=== PATIENT | male | born 1950 | race Two or more races ===

== ENCOUNTER 2020-02-07 14:39 | Inpatient (IN) | payer MEDICAID ==
[~2020-02-07] VITALS: Ht 172.7 cm; Wt 70.8 kg
[2020-02-07] MEDS ORDERED: IBUPROFEN 600 MG TABLET PO ONE (15:30)
[2020-02-07] MEDS ORDERED: AZITHROMYCIN 250 MG TABLET PO ONE (15:30)
[2020-02-07] MEDS ORDERED: DEXAMETHASONE 1 MG TABLET PO ONE (15:30)
--- NOTE | 2020-02-07 16:15 | NUR ---
epic senior front end web developer paged for panel
[2020-02-07] MEDS ORDERED: CEFTRIAXONE 1GM BAG (ER ONLY) 1 GM/50 ML PIGGYBACK IV ONE (16:30)
[2020-02-07 16:56] LABS: BASOPHILS % (AUTO) 0.4 % (0.0-2.0); HEMATOCRIT 40 % (39-51); HEMOGLOBIN 13.5 g/dL (13.5-17.5); LYMPHOCYTES # (AUTO) 1.5 /CMM (0.8-4.8); LYMPHOCYTES % (AUTO) 14.8 % (20.0-44.0); MEAN CORPUSCULAR HGB CONC 34 g/dl (31.0-36.0); MEAN CORPUSCULAR VOLUME 90 fL (80-96); MONOCYTES # (AUTO) 1.2 /CMM (0.1-1.30); MONOCYTES % (AUTO) 11.8 % (2.0-12.0); NEUTROPHILS # (AUTO) 7.3 /CMM (1.8-8.9); PLATELET COUNT (AUTO) 280 /CMM (150-450); RED BLOOD CELL COUNT(AUTO) 4.45 MIL/uL (4.5-6.0); WHITE BLOOD COUNT (AUTO) 10.1 K/uL (4.3-11.0)
[2020-02-07 17:07] LABS: CALCIUM, SERUM 8.5 mg/dL (8.5-10.1); CREATININE 1.2 mg/dL (0.6-1.3); POTASSIUM 4.1 mmol/L (3.5-5.1)
[2020-02-07 17:24] LABS: ALBUMIN 2.7 g/dL (3.4-5.0); BILIRUBIN,TOTAL 1.1 mg/dL (0.2-1.0); TOTAL PROTEIN, SERUM 7.4 g/dL (6.4-8.2)
[2020-02-07] MEDS ORDERED: DEXAMETHASONE SOD PHOSPHATE 10 MG/ML VIAL ONE (18:15)
[2020-02-07] MEDS ORDERED: DEXAMETHASONE 1 MG TABLET ONE (18:15)
[2020-02-07] MEDS ORDERED: CEFTRIAXONE 1GM BAG (ER ONLY) 50 ML IV ONE (18:15)
[2020-02-07] MEDS ORDERED: AZITHROMYCIN 250 MG TABLET ONE (18:15)
[2020-02-07] MEDS ORDERED: DEXAMETHASONE 4 MG TABLET ONE (18:16)
[2020-02-07] MEDS ORDERED: IBUPROFEN 600 MG TABLET ONE (18:16)
[2020-02-07] MEDS ORDERED: DEXAMETHASONE SOD PHOSPHATE 10 MG/ML VIAL IV ONE (18:30)
[2020-02-07] MEDS: DEXAMETHASONE SOD PHOSPHATE 10 MG/ML VIAL IV SCH (18:48)
--- NOTE | 2020-02-07 18:48 | NUR ---
SOB x 3 weeks with fever. Pt AAOX4, PT SEEN & EVAL'D BY DR. CAIN. MEDICATED ORDERED, PT HONEY WELL. WILL CONT TO MONITOR.
--- NOTE | 2020-02-07 19:18 | NUR ---
TOOK OVER PT CARE. PT NOTED DIAPHORETIC, WAS PLACED IN A GOWN, ON MONITOR, AND PULSE OX. PT PROVIDED WITH WATER AND COOL BLANKET. PT RESTING AND AWARE OF PLAN OF CARE.
--- NOTE | 2020-02-07 20:46 | NUR ---
PT RESTING COMFORTABLY. PROVIDED WITH WATER.
--- NOTE | 2020-02-07 21:41 | NUR ---
PT ON MONITOR AND PULSE OX. VSS.
--- NOTE | 2020-02-07 22:46 | NUR ---
PT RESTING COMFORTABLY. VSS. PROVIDED WITH PILLOW.
--- NOTE | 2020-02-07 23:19 | NUR ---
PT ASLEEP, VSS.
--- NOTE | 2020-02-07 23:24 | NUR ---
PT SAT 95% ON 4L NC.
--- NOTE | 2020-02-08 00:53 | NUR ---
PT PROVIDED WITH WATER. VSS.
--- NOTE | 2020-02-08 02:54 | NUR ---
PT REMAINS ASLEEP. PROVIDED WITH BLANKETS.
--- NOTE | 2020-02-08 04:06 | NUR ---
PT AWAKE IN BED, VSS.
--- NOTE | 2020-02-08 05:24 | NUR ---
PT SAT 89%-93% ON 6L NC. PT ASLEEP. PT REPOSITIONED.
--- NOTE | 2020-02-08 05:46 | NUR ---
PT PLACED ON 8L SIMPLE MASK. PT SAT 91%. PT THEN PLACED PRONE POSITION ON 15L NON REBREATHER. PT NOW SAT 97%
--- NOTE | 2020-02-08 07:37 | NUR ---
REPORT GIVEN TO MEGAN MENDES FOR ASHVIN
--- NOTE | 2020-02-08 08:00 | NUR ---
PATIENT A/OX4, ON PRONE POSITION. RESTING AT THIS TIME.
[2020-02-08] MEDS: DEXAMETHASONE SOD PHOSPHATE 10 MG/ML VIAL IV SCH (09:30)
--- NOTE | 2020-02-08 10:00 | NUR ---
PROVIDED FOOD TRAY, NO DISTRESS NOTED.
--- NOTE | 2020-02-08 12:00 | NUR ---
PATIENT ON SUPINE POSITION WITH SPO2 OF 94%. NO DISTRESS NOTED.
[2020-02-08] MEDS ORDERED: DEXAMETHASONE SOD PHOSPHATE 6 MG in IV D5W 50 ML IV ONE (13:00)
--- NOTE | 2020-02-08 13:00 | NUR ---
GAVE PATIENT FOOD AND WATER.
--- NOTE | 2020-02-08 14:30 | NUR ---
PATIENT PLACED ON PRONE POSITION. NO DISTRESS NOTED. STILL ON 15LPM VIA NRB.
--- NOTE | 2020-02-08 19:14 | NUR ---
PATIENT EATING DINNER, NO DISTRESS NOTED. ABLE TO STAND BY THE BED.
--- NOTE | 2020-02-08 19:21 | NUR ---
Patient speaks French only. Spoke with daughter in law Emma [phone]. Patient lives with his son and his family on the second floor apartment.Per family, patient was ambulatory and independent with adl's three weeks ago. For the past few weeks, patient became sick and started to have a progressive declined with mobility/difficulty walking. Has no DME or homehealth reported. Has no pcp due to being uninsured.Advised family to follow up with the local [facility] after discharge. Current dc plan is to return home. Addendum: 02/08/20 at 1922 by ALEXANDER ESCAMILLA RN Amended: Links added.
--- NOTE | 2020-02-09 03:03 | NUR ---
PT NOTICED SATTING AT 82% VIA NRB @15LPM. PT PLACED ON PRONE POSITION PT SATTING 90% ON 15LPM VIA NRB. AWARE. PT CONNECTED TO THE TOP LIFT NAILER AND POX.
[2020-02-09 04:33] LABS: BASOPHILS % (AUTO) 0.1 % (0.0-2.0); HEMATOCRIT 43 % (39-51); HEMOGLOBIN 14.3 g/dL (13.5-17.5); LYMPHOCYTES # (AUTO) 1.3 /CMM (0.8-4.8); LYMPHOCYTES % (AUTO) 9.4 % (20.0-44.0); MEAN CORPUSCULAR HGB CONC 33 g/dl (31.0-36.0); MEAN CORPUSCULAR VOLUME 91 fL (80-96); MONOCYTES # (AUTO) 0.9 /CMM (0.1-1.30); MONOCYTES % (AUTO) 6.5 % (2.0-12.0); PLATELET COUNT (AUTO) 316 /CMM (150-450); RED BLOOD CELL COUNT(AUTO) 4.68 MIL/uL (4.5-6.0); WHITE BLOOD COUNT (AUTO) 14.3 K/uL (4.3-11.0)
[2020-02-09 04:45] LABS: CALCIUM, SERUM 9.2 mg/dL (8.5-10.1); CREATININE 1.1 mg/dL (0.6-1.3); MAGNESIUM 2.6 mg/dL (1.8-2.4); POTASSIUM 4.4 mmol/L (3.5-5.1)
[2020-02-09] MEDS: DEXAMETHASONE SOD PHOSPHATE 10 MG/ML VIAL IV SCH (08:35)
--- NOTE | 2020-02-09 09:54 | NUR ---
PATIENT ON HIGH FLOW AND TOLERATING WELL, RESTING AT THIS TIME, ATE BREAKFAST.
--- NOTE | 2020-02-09 13:00 | NUR ---
PATIENT RESTING, NO DISTRESS NOTED.
--- NOTE | 2020-02-09 17:00 | NUR ---
PATIENT A/OX4, TOLERATING HIGH FLOW, NO DISTRESS NOTED. VITALS STABLE. GIVEN FOOD TRAY.
--- NOTE | 2020-02-09 20:16 | NUR ---
PT RESTING COMFORTABLY. VSS.
--- NOTE | 2020-02-09 21:23 | NUR ---
PT REQUESTED TO DRINK WATER. PT PROVIDED WITH WATER. APPEARS COMFORTABLE IN BED. ON HIGH FLOW, SAT 95%. PT PROVIDED WITH WARM BLANKET AND PILLOW. REPOSITIONED Q2HRS. RR EVEN AND UNLABORED. CALL LIGHT AT BEDSIDE. WILL CONTINUE TO MONITOR.
--- NOTE | 2020-02-09 23:50 | NUR ---
PT REPOSITIONED Q2 HRS. VSS. PT ASLEEP, CALL LIGHT AT BEDSIDE.
--- NOTE | 2020-02-10 01:08 | NUR ---
PT REPOSITIONED, PROVIDED WITH WATER. VSS.
--- NOTE | 2020-02-10 03:22 | NUR ---
PT NOTED ASLEEP, VSS. NO ACUTE DISTRESS NOTED.
--- NOTE | 2020-02-10 04:48 | NUR ---
FINAL INSPECTOR AT BEDSIDE FOR [facility].
[2020-02-10 06:04] LABS: BASOPHILS % (AUTO) 0.1 % (0.0-2.0); HEMATOCRIT 42 % (39-51); HEMOGLOBIN 13.9 g/dL (13.5-17.5); LYMPHOCYTES # (AUTO) 1.7 /CMM (0.8-4.8); LYMPHOCYTES % (AUTO) 12.9 % (20.0-44.0); MEAN CORPUSCULAR HGB CONC 33 g/dl (31.0-36.0); MEAN CORPUSCULAR VOLUME 91 fL (80-96); MONOCYTES % (AUTO) 7.5 % (2.0-12.0); NEUTROPHILS # (AUTO) 10.7 /CMM (1.8-8.9); NEUTROPHILS % (AUTO) 79.5 % (43.0-81.0); PLATELET COUNT (AUTO) 298 /CMM (150-450); RED BLOOD CELL COUNT(AUTO) 4.67 MIL/uL (4.5-6.0); WHITE BLOOD COUNT (AUTO) 13.4 K/uL (4.3-11.0)
[2020-02-10 06:17] LABS: CALCIUM, SERUM 8.9 mg/dL (8.5-10.1); CREATININE 0.8 mg/dL (0.6-1.3); MAGNESIUM 2.5 mg/dL (1.8-2.4); POTASSIUM 4.2 mmol/L (3.5-5.1)
[2020-02-10 06:34] LABS: PHOSPHORUS 4.7 mg/dL (2.5-4.9)
--- NOTE | 2020-02-10 06:44 | NUR ---
PT REPOSITIOEND, VSS.
--- NOTE | 2020-02-10 07:18 | NUR ---
REPORT GIVEN TO MEGAN MENDES FOR ASHVIN
[2020-02-10] MEDS: DEXAMETHASONE SOD PHOSPHATE 10 MG/ML VIAL IV SCH (08:19)
--- NOTE | 2020-02-10 09:04 | NUR ---
PATIENT A/OX4, ASSISTED TO SITTING POSITION. STILL ON HIGH FLOW AND TOLERATING WELL. PROVIDED BREAKFAST.
--- NOTE | 2020-02-10 19:30 | NUR ---
REC'D PT IN BED 1, AAOX4, ON HI-FLOW O2, TOLERATED, RR EVEN AND UNLABORED, SAT 96-98%, REC'D PT EATING DINNER, DENIES ANY PAIN/DISCOMFORT. PT VSS, NOT IN ANY ACUTE DISTRESS, CALL LIGHT WITHIN REACH, WILL CONT TO MONITOR.
[2020-02-11 05:10] LABS: BASOPHILS % (AUTO) 0.1 % (0.0-2.0); EOSINOPHILS % (AUTO) 0.3 % (0.0-6.0); HEMATOCRIT 40 % (39-51); HEMOGLOBIN 13.6 g/dL (13.5-17.5); LYMPHOCYTES % (AUTO) 19.6 % (20.0-44.0); MEAN CORPUSCULAR HGB CONC 34 g/dl (31.0-36.0); MEAN CORPUSCULAR VOLUME 90 fL (80-96); MONOCYTES # (AUTO) 0.8 /CMM (0.1-1.30); MONOCYTES % (AUTO) 8.5 % (2.0-12.0); NEUTROPHILS # (AUTO) 7.2 /CMM (1.8-8.9); NEUTROPHILS % (AUTO) 71.5 % (43.0-81.0); PLATELET COUNT (AUTO) 306 /CMM (150-450); RED BLOOD CELL COUNT(AUTO) 4.46 MIL/uL (4.5-6.0)
[2020-02-11 05:28] LABS: CALCIUM, SERUM 8.4 mg/dL (8.5-10.1); CREATININE 0.9 mg/dL (0.6-1.3); MAGNESIUM 2.2 mg/dL (1.8-2.4); PHOSPHORUS 3.8 mg/dL (2.5-4.9); POTASSIUM 4.2 mmol/L (3.5-5.1)
--- NOTE | 2020-02-11 06:00 | NUR ---
NO ACUTE EVENTS, CONT ON HIGHFLOW O2, TOLERATED, -SOB. VSS
--- NOTE | 2020-02-11 08:30 | NUR ---
provided with breakfast ate 80%. all due meds administered. no ase noted
[2020-02-11] MEDS: DEXAMETHASONE SOD PHOSPHATE 10 MG/ML VIAL IV SCH (09:30)
--- NOTE | 2020-02-11 12:30 | NUR ---
provioded with lunch ate 70%
--- NOTE | 2020-02-11 15:00 | NUR ---
pt was assisted to commode x1 bm today by bedside commode
--- NOTE | 2020-02-11 17:30 | NUR ---
provided with dinner ate 70%
--- NOTE | 2020-02-11 19:32 | NUR ---
report given to zahida ramirez for kwabena
[2020-02-12 05:45] LABS: EOSINOPHILS % (AUTO) 0.1 % (0.0-6.0); HEMATOCRIT 41 % (39-51); HEMOGLOBIN 13.8 g/dL (13.5-17.5); LYMPHOCYTES # (AUTO) 1.9 /CMM (0.8-4.8); LYMPHOCYTES % (AUTO) 16.2 % (20.0-44.0); MEAN CORPUSCULAR HGB CONC 34 g/dl (31.0-36.0); MEAN CORPUSCULAR VOLUME 90 fL (80-96); MONOCYTES # (AUTO) 0.8 /CMM (0.1-1.30); MONOCYTES % (AUTO) 6.9 % (2.0-12.0); NEUTROPHILS % (AUTO) 76.8 % (43.0-81.0); PLATELET COUNT (AUTO) 331 /CMM (150-450); RED BLOOD CELL COUNT(AUTO) 4.58 MIL/uL (4.5-6.0); WHITE BLOOD COUNT (AUTO) 11.7 K/uL (4.3-11.0)
[2020-02-12 05:56] LABS: CALCIUM, SERUM 8.6 mg/dL (8.5-10.1); CREATININE 0.9 mg/dL (0.6-1.3); MAGNESIUM 2.3 mg/dL (1.8-2.4); PHOSPHORUS 3.6 mg/dL (2.5-4.9); POTASSIUM 4.7 mmol/L (3.5-5.1)
--- NOTE | 2020-02-12 07:00 | NUR ---
RECEIVED PT IN BED AT THIS TIME.AOX4, PT ABLE TO VERBALIZE NEEDS. WALLISIAN SPEAKING. PT ON HIGH FLOW OXYGEN @ 60 WITH FIO2 OF 70. IV ACCESS NOTED IN LAC G#20, INTACT, PATENT AND FLUSHING WELL. SAFETY PRECAUTIONS IN PLACE AND MAINTAINED AT ALL TIMES, BED IN LOWEST LOCKED POSITION, HOB ELEVATED, CALL LIGHT WITHIN REACH, WILL CONTINUE TO MONITOR
--- NOTE | 2020-02-12 07:41 | NUR ---
REPORT GIVEN TO ROSALINA MENDES FOR ASHVIN.
[2020-02-12] MEDS: DEXAMETHASONE SOD PHOSPHATE 10 MG/ML VIAL IV SCH (08:23)
--- NOTE | 2020-02-12 19:03 | NUR ---
RN CLOSING NOTES PT AWAKE IN BED AT THIS TIME.PT REMAINED STABLE THROUGHOUT SHIFT. ALL CARE, NEED, MEDICATIONS AND TREATMENT ADMINISTERED ANTICIPATED PER ORDER. PT KEPT CLEAN AND DRY. SAFETY PRECAUTION IN PLACE AND MAINTAINED AT ALL TIMES. BED IN LOWEST LOCKED POSITION, HOB ELEVATED, SIDE RAILS UP X 2, CALL LIGHT AND TABLE WITHIN REACH. WILL ENDORSE TO CHAPLAIN RESIDENT NURSE FOR ASHVIN
--- NOTE | 2020-02-12 19:20 | NUR ---
REC'D REPORT FROM CINTHYA ROMANO. PT RESTING COMFORTABLY IN BED. VITAL SIGNS STABLE. PT STILL ON HIGH FLOW, TOLERATING WELL. O2 SAT 99% ROOM AIR. STILL ON CONTINUOUS SLIP INJECTOR AND APPLICATOR AND PULSE OX, WILL CONTINUE TO MONITOR
[2020-02-12 19:52] LABS: C-REACTIVE PROTEIN 2.3 mg/dL (0.0-0.9)
[2020-02-12] MEDS ORDERED: REMDESIVIR (CHARGED) 200 MG, *LOADING DOSE 1 EA in IV NS 0.9% 210 ML IV ONE (20:00)
[2020-02-12] MEDS ORDERED: ENOXAPARIN SODIUM 40 MG/0.4 ML DISP.SYRIN SQ ONE (20:33)
[2020-02-12] MEDS: ENOXAPARIN SODIUM 40 MG/0.4 ML DISP.SYRIN SQ SCH (20:38)
[2020-02-13 03:51] LABS: BASOPHILS % (AUTO) 0.1 % (0.0-2.0); HEMATOCRIT 42 % (39-51); HEMOGLOBIN 13.8 g/dL (13.5-17.5); LYMPHOCYTES # (AUTO) 2.1 /CMM (0.8-4.8); LYMPHOCYTES % (AUTO) 17.4 % (20.0-44.0); MEAN CORPUSCULAR HGB CONC 33 g/dl (31.0-36.0); MEAN CORPUSCULAR VOLUME 92 fL (80-96); MONOCYTES # (AUTO) 0.8 /CMM (0.1-1.30); MONOCYTES % (AUTO) 6.8 % (2.0-12.0); NEUTROPHILS # (AUTO) 9.1 /CMM (1.8-8.9); NEUTROPHILS % (AUTO) 75.7 % (43.0-81.0); PLATELET COUNT (AUTO) 339 /CMM (150-450); RED BLOOD CELL COUNT(AUTO) 4.56 MIL/uL (4.5-6.0); WHITE BLOOD COUNT (AUTO) 12.1 K/uL (4.3-11.0)
[2020-02-13 04:19] LABS: ALBUMIN 2.5 g/dL (3.4-5.0); BILIRUBIN,DIRECT 0.1 mg/dL (0.0-0.2); BILIRUBIN,TOTAL 0.4 mg/dL (0.2-1.0); CALCIUM, SERUM 9.1 mg/dL (8.5-10.1); MAGNESIUM 2.2 mg/dL (1.8-2.4); PHOSPHORUS 3.9 mg/dL (2.5-4.9); POTASSIUM 4.8 mmol/L (3.5-5.1); TOTAL PROTEIN, SERUM 6.9 g/dL (6.4-8.2)
--- NOTE | 2020-02-13 05:36 | NUR ---
PT CLEANED, TURNED, AND BED SHEETS CHANGED. PT RESTING COMFORTABLY IN BED. VITAL SIGNS STABLE. CALL LIGHT WITHIN REACH. WILL CONTINUE TO MONITOR
[2020-02-13] MEDS: ENOXAPARIN SODIUM 40 MG/0.4 ML DISP.SYRIN SQ SCH ×2 (06:05→17:35)
[2020-02-13] MEDS ORDERED: ENOXAPARIN SODIUM 60 MG/0.6 ML DISP.SYRIN SQ ONE (06:05)
--- NOTE | 2020-02-13 07:21 | NUR ---
REPORT GIVEN TO CINTHYA CHATTERJEE FOR ASHVIN
[2020-02-13] MEDS: DEXAMETHASONE SOD PHOSPHATE 10 MG/ML VIAL IV SCH (09:25)
[2020-02-13] MEDS ORDERED: REMDESIVIR (CHARGED) 100 MG in IV NS 0.9% 230 ML IV SCH (20:00)
--- NOTE | 2020-02-13 23:40 | NUR ---
PATIENT IS SLEEPING. EASILY AROUSABLE BY VERBAL STIMULI. BREATHING EVENLY AND UNLABORED ON ROOM AIR. CONNECTED TO THE MONITOR. SIDE RAILS UP FOR SAFETY. BED AT THE LOWEST POSITION. CALL LIGHT IS WITHIN REACH. VSS. WILL CONTINUE TO MONITOR PATIENT.
--- NOTE | 2020-02-14 02:58 | NUR ---
PATIENT PLACED ON 25L AND 40% FIO2
--- NOTE | 2020-02-14 04:36 | NUR ---
EMPTIED OUT URINAL, PATIENT CURRENLTY HAS NO COMPLAINT. PATIENT IS BREATHING EVENLY AND UNLABORED ON ROOM AIR. AAOX4. WILL CONTINUE TO MONITOR.
[2020-02-14 05:06] LABS: BASOPHILS % (AUTO) 0.1 % (0.0-2.0); HEMATOCRIT 43 % (39-51); LYMPHOCYTES % (AUTO) 18.1 % (20.0-44.0); MEAN CORPUSCULAR HGB CONC 33 g/dl (31.0-36.0); MEAN CORPUSCULAR VOLUME 91 fL (80-96); MONOCYTES # (AUTO) 0.7 /CMM (0.1-1.30); MONOCYTES % (AUTO) 6.5 % (2.0-12.0); NEUTROPHILS # (AUTO) 8.4 /CMM (1.8-8.9); NEUTROPHILS % (AUTO) 75.3 % (43.0-81.0); PLATELET COUNT (AUTO) 343 /CMM (150-450); RED BLOOD CELL COUNT(AUTO) 4.67 MIL/uL (4.5-6.0); WHITE BLOOD COUNT (AUTO) 11.2 K/uL (4.3-11.0)
[2020-02-14 05:29] LABS: ALBUMIN 2.6 g/dL (3.4-5.0); BILIRUBIN,DIRECT 0.2 mg/dL (0.0-0.2); BILIRUBIN,TOTAL 0.5 mg/dL (0.2-1.0); MAGNESIUM 2.3 mg/dL (1.8-2.4); PHOSPHORUS 3.5 mg/dL (2.5-4.9); POTASSIUM 4.8 mmol/L (3.5-5.1); TOTAL PROTEIN, SERUM 6.9 g/dL (6.4-8.2)
--- NOTE | 2020-02-14 05:55 | NUR ---
PATIENT IS SLEEPING. EASILY AROUSABLE BY VERBAL STIMULI. BREATHING EVENLY AND UNLABORED ON HIGH FLOW NASAL CANNULA. CONNECTED TO THE MONITOR. SIDE RAILS UP FOR SAFETY. BED AT THE LOWEST POSITION. CALL LIGHT IS WITHIN REACH. VSS. WILL CONTINUE TO MONITOR PATIENT.
[2020-02-14] MEDS ORDERED: ENOXAPARIN SODIUM 40 MG/0.4 ML DISP.SYRIN SQ ONE (06:17)
[2020-02-14] MEDS: ENOXAPARIN SODIUM 40 MG/0.4 ML DISP.SYRIN SQ SCH ×2 (06:24→17:10)
--- NOTE | 2020-02-14 08:02 | NUR ---
REPORT GIVEN TO NOREEN MENDES FOR ASHVIN.
[2020-02-14] MEDS: DEXAMETHASONE SOD PHOSPHATE 10 MG/ML VIAL IV SCH (08:46)
--- NOTE | 2020-02-14 09:00 | NUR ---
RT TITRATED THE PATIENT'S O2 FROM HIGH FLOW TO NASAL CANNULA 5LPM WITH SPO2 OF 95%. PATIENT'S BREATHINGE THOR AND UNLABORED, NO SOB NOTED. TOLERATED BREAKFAST.
--- NOTE | 2020-02-14 12:00 | NUR ---
PATIENT PROVIDED WITH SKIN CARE. NO DISTRESS NOTED. TOLERATING 5LPM VIA NC. EATING LUNCH AT THIS TIME.
--- NOTE | 2020-02-15 03:38 | NUR ---
PATIENT IS SLEEPING. TOLERATING 5L 02 NASAL CANNULA AT 98%. PATIENT IS BREATHING EVENLY AND UNLABORED. CONNECTED TO THE CLINICAL INFORMATICS MANAGER. PATIENT'S BED IS AT THE LOWEST POSITION. CALL LIGHT IS WITHIN REACH. SIDE RAILS ARE UP FOR SAFETY. WILL CONTINUE TO MONITOR PATIENT CLOSELY.
[2020-02-15 04:09] LABS: BASOPHILS # (AUTO) 0.1 /CMM (0.0-0.2); BASOPHILS % (AUTO) 0.6 % (0.0-2.0); EOSINOPHILS % (AUTO) 0.1 % (0.0-6.0); HEMATOCRIT 44 % (39-51); HEMOGLOBIN 14.4 g/dL (13.5-17.5); LYMPHOCYTES # (AUTO) 2.1 /CMM (0.8-4.8); LYMPHOCYTES % (AUTO) 19.1 % (20.0-44.0); MEAN CORPUSCULAR HGB CONC 33 g/dl (31.0-36.0); MEAN CORPUSCULAR VOLUME 92 fL (80-96); MONOCYTES # (AUTO) 0.9 /CMM (0.1-1.30); MONOCYTES % (AUTO) 8.4 % (2.0-12.0); NEUTROPHILS # (AUTO) 7.8 /CMM (1.8-8.9); NEUTROPHILS % (AUTO) 71.8 % (43.0-81.0); PLATELET COUNT (AUTO) 351 /CMM (150-450); RED BLOOD CELL COUNT(AUTO) 4.82 MIL/uL (4.5-6.0); WHITE BLOOD COUNT (AUTO) 10.9 K/uL (4.3-11.0)
[2020-02-15 04:27] LABS: ALBUMIN 2.5 g/dL (3.4-5.0); BILIRUBIN,DIRECT 0.1 mg/dL (0.0-0.2); BILIRUBIN,TOTAL 0.6 mg/dL (0.2-1.0); CALCIUM, SERUM 8.7 mg/dL (8.5-10.1); MAGNESIUM 2.4 mg/dL (1.8-2.4); PHOSPHORUS 3.5 mg/dL (2.5-4.9); POTASSIUM 4.9 mmol/L (3.5-5.1); TOTAL PROTEIN, SERUM 6.6 g/dL (6.4-8.2)
[2020-02-15] MEDS: ENOXAPARIN SODIUM 40 MG/0.4 ML DISP.SYRIN SQ SCH ×2 (06:19→18:39)
[2020-02-15] MEDS: DEXAMETHASONE SOD PHOSPHATE 10 MG/ML VIAL IV SCH (09:39)
--- NOTE | 2020-02-16 03:00 | NUR ---
pt o2 titrated to 4lpm nc, tolerated, 99-100% sat
[2020-02-16 06:26] LABS: ALBUMIN 2.6 g/dL (3.4-5.0); BILIRUBIN,DIRECT 0.2 mg/dL (0.0-0.2); BILIRUBIN,TOTAL 0.5 mg/dL (0.2-1.0); CALCIUM, SERUM 8.5 mg/dL (8.5-10.1); CREATININE 0.9 mg/dL (0.6-1.3); POTASSIUM 4.8 mmol/L (3.5-5.1); TOTAL PROTEIN, SERUM 6.5 g/dL (6.4-8.2)
[2020-02-16] MEDS: ENOXAPARIN SODIUM 40 MG/0.4 ML DISP.SYRIN SQ SCH ×2 (07:16→20:04)
[2020-02-16 08:51] LABS: ALBUMIN 2.8 g/dL (3.4-5.0); BILIRUBIN,DIRECT 0.2 mg/dL (0.0-0.2); BILIRUBIN,TOTAL 0.6 mg/dL (0.2-1.0)
[2020-02-16] MEDS: DEXAMETHASONE SOD PHOSPHATE 10 MG/ML VIAL IV SCH (09:13)
--- NOTE | 2020-02-16 16:22 | NUR ---
narda caser up called for pt updates
--- NOTE | 2020-02-16 20:15 | NUR ---
PT AAOX4, VSS. RESPIRATIONS EVEN AND UNLABORED ON RA W/ NAD NOTED. PT HAS NO COMPLAINTS AT THIS TIME. PT STATES "I FEEL BETTER THAN THE FIRST TIME I CAME IN". PT DENIES PAIN AND SOB. WILL CONTINUE TO MONITOR ACCORDINGLY
[2020-02-17] MEDS: ENOXAPARIN SODIUM 40 MG/0.4 ML DISP.SYRIN SQ SCH ×2 (06:11→18:30)
[2020-02-17 06:29] LABS: BASOPHILS # (AUTO) 0.1 /CMM (0.0-0.2); BASOPHILS % (AUTO) 0.4 % (0.0-2.0); EOSINOPHILS % (AUTO) 0.1 % (0.0-6.0); HEMATOCRIT 43 % (39-51); HEMOGLOBIN 14.2 g/dL (13.5-17.5); LYMPHOCYTES # (AUTO) 2.3 /CMM (0.8-4.8); LYMPHOCYTES % (AUTO) 19.3 % (20.0-44.0); MEAN CORPUSCULAR HGB CONC 33 g/dl (31.0-36.0); MEAN CORPUSCULAR VOLUME 91 fL (80-96); MONOCYTES # (AUTO) 0.8 /CMM (0.1-1.30); MONOCYTES % (AUTO) 7.1 % (2.0-12.0); NEUTROPHILS # (AUTO) 8.6 /CMM (1.8-8.9); NEUTROPHILS % (AUTO) 73.1 % (43.0-81.0); PLATELET COUNT (AUTO) 354 /CMM (150-450); RED BLOOD CELL COUNT(AUTO) 4.71 MIL/uL (4.5-6.0); WHITE BLOOD COUNT (AUTO) 11.7 K/uL (4.3-11.0)
[2020-02-17 07:11] LABS: ALBUMIN 2.6 g/dL (3.4-5.0); BILIRUBIN,DIRECT 0.2 mg/dL (0.0-0.2); BILIRUBIN,TOTAL 0.5 mg/dL (0.2-1.0); CALCIUM, SERUM 8.5 mg/dL (8.5-10.1); CREATININE 0.9 mg/dL (0.6-1.3); MAGNESIUM 2.2 mg/dL (1.8-2.4); PHOSPHORUS 3.1 mg/dL (2.5-4.9); POTASSIUM 4.5 mmol/L (3.5-5.1); TOTAL PROTEIN, SERUM 6.5 g/dL (6.4-8.2)
[2020-02-17] MEDS ORDERED: ENOXAPARIN SODIUM 40 MG/0.4 ML DISP.SYRIN SQ ONE (18:46)
--- NOTE | 2020-02-17 19:30 | NUR ---
REC'D PT AWAKE/ALERT, AAOX4, DENIES ANY SOB, PT ON 2L NC, TOLERATED, PT AMBULATORY, PT CONTINENT B/B, CALL LIGHT WITHIN REACH, VSS, NAD. WCTM
--- NOTE | 2020-02-18 06:00 | NUR ---
NO ACUTE EVENTS, NO CHANGES, DENIES SOB/CP. VSS. WCTM
[2020-02-18] MEDS: ENOXAPARIN SODIUM 40 MG/0.4 ML DISP.SYRIN SQ SCH ×2 (07:09→18:30)
[2020-02-18 07:53] LABS: BASOPHILS % (AUTO) 0.3 % (0.0-2.0); EOSINOPHILS % (AUTO) 0.6 % (0.0-6.0); HEMATOCRIT 41 % (39-51); HEMOGLOBIN 13.6 g/dL (13.5-17.5); LYMPHOCYTES # (AUTO) 3.1 /CMM (0.8-4.8); LYMPHOCYTES % (AUTO) 33.2 % (20.0-44.0); MEAN CORPUSCULAR HGB CONC 33 g/dl (31.0-36.0); MEAN CORPUSCULAR VOLUME 91 fL (80-96); MONOCYTES # (AUTO) 0.8 /CMM (0.1-1.30); NEUTROPHILS # (AUTO) 5.3 /CMM (1.8-8.9); NEUTROPHILS % (AUTO) 56.9 % (43.0-81.0); PLATELET COUNT (AUTO) 329 /CMM (150-450); RED BLOOD CELL COUNT(AUTO) 4.52 MIL/uL (4.5-6.0); WHITE BLOOD COUNT (AUTO) 9.4 K/uL (4.3-11.0)
[2020-02-18 08:21] LABS: CALCIUM, SERUM 8.5 mg/dL (8.5-10.1); CREATININE 0.9 mg/dL (0.6-1.3); MAGNESIUM 2.2 mg/dL (1.8-2.4); PHOSPHORUS 3.6 mg/dL (2.5-4.9)
--- NOTE | 2020-02-18 19:20 | NUR ---
ASSUMED CARE. RECEIVED REPORT FROM AM SHIFT CINTHYA CHATTERJEE. PT RESTING QUIETLY, NO ACUTE DISTRESS NOTED, RESP EVEN AND UNLABORED, LUNG SOUNDS DEMINISHED THROUGHOUT THE BASES. PT ON CARDIAC MONITORING, CONTINUOUS POX. O2@2L/NC NOTED. NO PAIN OR DISCOMFORT NOTED. PT AAOX4. SKIN WARM, NONDIAPHORETIC. CALL LIGHT WITHIN REACH. WILL CONTINUE TO MONITOR PT CLOSELY.
--- NOTE | 2020-02-19 01:54 | NUR ---
PT ASLEEP, NO ACUTE DISTRESS NOTED, RESP EVEN AND UNLABORED. CALL LIGHT WITHIN REACH. WILL CONTINUE TO MONITOR PT CLOSELY.
[2020-02-19 04:24] LABS: BASOPHILS % (AUTO) 0.3 % (0.0-2.0); EOSINOPHILS % (AUTO) 1.3 % (0.0-6.0); HEMATOCRIT 42 % (39-51); HEMOGLOBIN 13.8 g/dL (13.5-17.5); LYMPHOCYTES # (AUTO) 2.8 /CMM (0.8-4.8); LYMPHOCYTES % (AUTO) 29.2 % (20.0-44.0); MEAN CORPUSCULAR HGB CONC 33 g/dl (31.0-36.0); MEAN CORPUSCULAR VOLUME 92 fL (80-96); MONOCYTES # (AUTO) 0.9 /CMM (0.1-1.30); MONOCYTES % (AUTO) 9.6 % (2.0-12.0); NEUTROPHILS # (AUTO) 5.7 /CMM (1.8-8.9); NEUTROPHILS % (AUTO) 59.6 % (43.0-81.0); PLATELET COUNT (AUTO) 329 /CMM (150-450); WHITE BLOOD COUNT (AUTO) 9.6 K/uL (4.3-11.0)
[2020-02-19 04:37] LABS: CALCIUM, SERUM 8.6 mg/dL (8.5-10.1); CREATININE 1.1 mg/dL (0.6-1.3); MAGNESIUM 2.3 mg/dL (1.8-2.4); PHOSPHORUS 4.4 mg/dL (2.5-4.9); POTASSIUM 4.7 mmol/L (3.5-5.1)
--- NOTE | 2020-02-19 05:00 | NUR ---
PT AMBULATORY TO THE BATHROOM WITH STEADY GAIT NOTED. NO ACUTE DISTRESS NOTED. PT REMAINS PAIN FREE AT THIS TIME. WILL CONTINUE TO MONITOR PT CLOSELY.
[2020-02-19] MEDS: ENOXAPARIN SODIUM 40 MG/0.4 ML DISP.SYRIN SQ SCH ×2 (06:11→18:27)
[2020-02-19] MEDS ORDERED: ENOXAPARIN SODIUM 40 MG/0.4 ML DISP.SYRIN SQ ONE (18:12)
--- NOTE | 2020-02-19 19:15 | NUR ---
Note undone in EDM - 02/19/20 at 2304 by TRACIE ASSUMED CARE FROM CINTHYA CHATTERJEE. PT IS A&OX4. PT ABLE TO SPEAK IN FULL SENTENCES AND BREATHING EVENLY AND UNLABORED. PT HAS MILD COUGH AND O295% 8L SIMPLE MASK.SKIN IS INTACT, WARM AND DRY. PT HOOKED TO MONITOR AND POX. CALL LIGHT WITHIN REACH. WILL CONTINUE TO MONITOR.
--- NOTE | 2020-02-19 19:15 | NUR ---
ASSUMED CARE FROM CINTHYA CHATTERJEE. PT IS RESTING COMFORTABLY IN BED, PLAYING WITH HIS CELL PHONE. PT STATES THAT "HE IS FEELING BETTER". PT A&OX4 BREATHING EVENLY AND UNLABORED. SKIN IS WARM, DRY, AND INTACT. PT IS HOOKED TO THE MONITOR AND POX. CALL LIGHT WITHIN REACH. WILL CONTINUE TO MONITOR.
--- NOTE | 2020-02-19 22:15 | NUR ---
PT RESTING COMFORTABLY AND CONNECTED TO THE MONITOR. PT BREATHING EVENLY AND UNLABORED. PT CONNECTED TO THE MONITOR, CALL LIGHT WITHIN REACH. WILL CONTINUE TO MONITOR.
[2020-02-20 05:12] LABS: BASOPHILS % (AUTO) 0.4 % (0.0-2.0); EOSINOPHILS % (AUTO) 1.9 % (0.0-6.0); HEMATOCRIT 39 % (39-51); HEMOGLOBIN 13.3 g/dL (13.5-17.5); LYMPHOCYTES # (AUTO) 2.3 /CMM (0.8-4.8); LYMPHOCYTES % (AUTO) 25.4 % (20.0-44.0); MEAN CORPUSCULAR HGB CONC 34 g/dl (31.0-36.0); MEAN CORPUSCULAR VOLUME 91 fL (80-96); MONOCYTES # (AUTO) 0.9 /CMM (0.1-1.30); MONOCYTES % (AUTO) 10.1 % (2.0-12.0); NEUTROPHILS # (AUTO) 5.7 /CMM (1.8-8.9); NEUTROPHILS % (AUTO) 62.2 % (43.0-81.0); PLATELET COUNT (AUTO) 286 /CMM (150-450); RED BLOOD CELL COUNT(AUTO) 4.31 MIL/uL (4.5-6.0); WHITE BLOOD COUNT (AUTO) 9.1 K/uL (4.3-11.0)
[2020-02-20 05:27] LABS: CALCIUM, SERUM 8.3 mg/dL (8.5-10.1); CREATININE 0.9 mg/dL (0.6-1.3); MAGNESIUM 2.2 mg/dL (1.8-2.4); PHOSPHORUS 3.4 mg/dL (2.5-4.9); POTASSIUM 4.1 mmol/L (3.5-5.1)
--- NOTE | 2020-02-20 06:02 | NUR ---
REPORT CALLED TO PHARMACY ORDER ENTRY TECHNICIANCINTHYA FREEMAN.
[2020-02-20] MEDS ORDERED: ENOXAPARIN SODIUM 40 MG/0.4 ML DISP.SYRIN SQ ONE (06:04)
[2020-02-20] MEDS: ENOXAPARIN SODIUM 40 MG/0.4 ML DISP.SYRIN SQ SCH ×2 (06:05→17:37)
--- NOTE | 2020-02-20 07:30 | NUR ---
REPORT PASSED ON TO PAULETTE FOR CONTINUITY OF CARE. QUESTIONS CONCERNS ADDRESSED. PT IN ROOM IN NO APPARENT DISTRESS. ON 2LNC. CALL LIGHT IN REACH BED DOWN AND LOCKED.
[2020-02-20 08:00] VITALS: BP 125/69
--- NOTE | 2020-02-20 10:00 | NUR ---
TELE/RN NOTES DR ARGUETA ORDER PATIENT IS OKAY TO DISCHARGE IF THERE IS OXYGEN. NOTED AND CARRIED OUT.
--- NOTE | 2020-02-20 10:56 | NUR ---
TELE/RN NOTES PATIENT REFUSED FOR SKIN ASSESSMENT , EX[PLAINED THE RISK AND BENEFITS. WILL CONTINUE TO MONITOR.
--- NOTE | 2020-02-20 11:51 | NUR ---
TELE/RN NOTES PATIENT SATURATION 87-88 ON ROOM AIR AT REST.
--- NOTE | 2020-02-20 11:51 | NUR ---
TELE/RN NOTES PATIENT SATURATION 87-89 ON ROOM AIR AT REST. Addendum: 02/20/20 at 1506 by PAULETTE LINO RN ERROR
[2020-02-20 12:00] VITALS: BP 139/59
[2020-02-20 16:00] VITALS: BP 131/71
--- NOTE | 2020-02-20 19:03 | NUR ---
athlete manager opening notes Received Pt from morning nurse. Pt is alert and orientedX4. Pt speaks Cymro and able to make needs known. Pt is laying in bed comfortably talking with his daughter on the phone. Respiration is normal in room air. No SOB. No S/S of distress noted. Tele monitor showed SR hr at 73 bpm. IV site at LAC# 20 is clean, intact, flushes well and SL. Safety precautions is maintained. Bed at low position, brakes locked, side rails upX2 and call light is within reach. Will continue to monitor.
--- NOTE | 2020-02-20 19:28 | NUR ---
TELE/RN CLOSING NOTES PATIENT IS ON BED. ALERT AND ORIENTED X3. PATIENT IN NO APPARENT RESPIRATORY DISTRESS NOTED. NO COMPLAINED OF PAIN AT THIS TIME. PATIENT IS ON ROOM AIR SATURATIONS 97%. TELE MONITOR READING SINUS RHYTHM - SINUS TACHY 75- 105BPM. IV ACCESS AT LEFT AC 20G PATENT AND INTACT. SEEN AND EXAMINED BY MD WITH ORDERS MADE AND CARRIED OUT. ALL DUE MEDICATIONS WAS GIVEN. SAFETY PRECAUTIONS WAS IN PLACED. BED IN LOWEST POSITION AND LOCKED. SIDERAILS UP X2. CALL LIGHT WITHIN REACH. WILL ENDORSED TO VP RESPIRATORY FOR ASHVIN.
[2020-02-20 20:00] VITALS: BP 131/73
[2020-02-21] VITALS: BP 138/72
[2020-02-21 00:01] VITALS: BP 131/73
[2020-02-21 04:00] VITALS: BP 124/67
[2020-02-21] MEDS ORDERED: ENOXAPARIN SODIUM 40 MG/0.4 ML DISP.SYRIN SQ ONE (05:41)
--- NOTE | 2020-02-21 05:44 | NUR ---
game designer/creative director notes Unable to get lovenox 40 mg at the [facility]. Called and spoke to charge nurse regarding Pt's lovenox. Received lovenox 40 mg from charge nurse.
[2020-02-21] MEDS: ENOXAPARIN SODIUM 40 MG/0.4 ML DISP.SYRIN SQ SCH (05:47)
--- NOTE | 2020-02-21 07:10 | NUR ---
facility mechanic closing notes Pt is resting in bed comfortably. Pt is alert and orientedX4. Respiration is normal in room air. No SOB. No S/S of distress noted. Tele monitor showed SR hr at 61 bpm. VS is stable. Afebrile. IV site at LAC# 20 is clean, intact, flushes well and SL. Routine meds were given as ordered. Kept Pt clean, dry and comfortable. Safety precautions is maintained. Bed at low position, brakes locked, side rails upX2 and call light is within reach. Will endorse to morning nurse for ASHVIN.
--- NOTE | 2020-02-21 07:15 | NUR ---
RN NOTE Patient Received. Patient is noted in bed, awake, alert and oriented. patient is able to make needs known. Breathing is even and non labored. Patient continues on room air with no episodes of shortness of breath or acute distress noted. Patient continues on tele monitor noted to be NSR. Patient noted with IV sit to LAC 20G noted patient and intact. Safety precautions in place. Bed is locked and in lowest position. Call light within reach. All needs attended to promptly. Will continue plan of care as ordered.
[2020-02-21 07:33] LABS: BASOPHILS % (AUTO) 0.5 % (0.0-2.0); EOSINOPHILS % (AUTO) 2.1 % (0.0-6.0); HEMATOCRIT 40 % (39-51); HEMOGLOBIN 12.9 g/dL (13.5-17.5); LYMPHOCYTES # (AUTO) 2.4 /CMM (0.8-4.8); LYMPHOCYTES % (AUTO) 25.9 % (20.0-44.0); MEAN CORPUSCULAR HGB CONC 33 g/dl (31.0-36.0); MEAN CORPUSCULAR VOLUME 92 fL (80-96); MONOCYTES # (AUTO) 1.1 /CMM (0.1-1.30); MONOCYTES % (AUTO) 11.6 % (2.0-12.0); NEUTROPHILS # (AUTO) 5.6 /CMM (1.8-8.9); NEUTROPHILS % (AUTO) 59.9 % (43.0-81.0); PLATELET COUNT (AUTO) 283 /CMM (150-450); RED BLOOD CELL COUNT(AUTO) 4.32 MIL/uL (4.5-6.0); WHITE BLOOD COUNT (AUTO) 9.4 K/uL (4.3-11.0)
[2020-02-21 07:45] LABS: CALCIUM, SERUM 8.4 mg/dL (8.5-10.1); CREATININE 0.8 mg/dL (0.6-1.3)
[2020-02-21] MEDS ORDERED: PRED20TA PO (08:48)
--- NOTE | 2020-02-21 09:33 | NUR ---
RN NOTES LOVENOX ALREADY ADMINISTERED BY NOC SHIFT NURSE.
--- NOTE | 2020-02-21 13:10 | NUR ---
RN NOTES PATIENT FOR DISCHARGE, DISCHARGE INSTRUCTIONS PACKET/EDUCATION/TEACHINGS PROVIDED TO PATIENT. PRESCRIPTION GIVEN TO PATIENT. IV ACCESS REMOVED WITH CATHETER TIP INTACT WITH GAUZE DRESSING APPLIED. ALL BELONGINGS ACCOUNTED FOR. PATIENT PICKED UP BY DAUGHTER ADELINA AND LEFT VIA FACILITY VIA PRIVATE TRANSPORTATION IN STABLE CONDITION.
== END 2020-02-21 13:10 | disposition home or self-care (01) | DRG 137 ==
LOC: ER 14:44 → TRANSITION 16:54 → TELE2 02-20 05:43
PROVIDERS: ADMIT Nurse Practitioner Acute Care; ATTEND Family Medicine
PROC: XW033E5 Introduction of Remdesivir Anti-infective into Peripheral Vein, Percutaneous Approach, New Technology Group 5 (ICD-10-PCS; principal; 2020-02-12)
PROC: XW13325 Transfusion of Convalescent Plasma (Nonautologous) into Peripheral Vein, Percutaneous Approach, New Technology Group 5 (ICD-10-PCS; 2020-02-12)
DX: U07.1 COVID-19 (principal); J12.89 Other viral pneumonia; J96.91 Respiratory failure, unspecified with hypoxia; I10 Essential (primary) hypertension; E44.0 Moderate protein-calorie malnutrition; R74.01 Elevation of levels of liver transaminase levels; R79.89 Other specified abnormal findings of blood chemistry
CPT/HCPCS: 36415; 71045-TC; 71046; 80048-TC; 80053-TC; 80076-TC; 82728-TC; 83605-TC; 83735-TC; 83880; 84100-TC; 85025-TC; 85378-TC; 85610-TC; 85730-TC; 86140-TC; 86850-TC; 87081-TC; 94760-TC; 94799-TC; A4216; A4217; G0378; J0696; J1100; J1650; J7050; J8540; P9017-BL; U0003